=== PATIENT | female | born 1965 ===

== ENCOUNTER 2020-08-01 19:00 | Inpatient (IN) | payer MEDICARE, OTHER ==
[~2020-08-01] VITALS: Ht 165.1 cm; Wt 72.6 kg
--- NOTE | 2020-08-01 19:08 | NUR ---
PT IS IN ROOM #1B. DR SALCEDO EVALUATED THE PT.
--- NOTE | 2020-08-01 19:30 | NUR ---
Patient is resting in bed, no acute distress noted.
[2020-08-01] MEDS ORDERED: MAG30ORA PO (19:47)
[2020-08-01] MEDS ORDERED: DIPH50CA37 PO (19:47)
[2020-08-01] MEDS ORDERED: LORA2TAB95 PO (19:47)
[2020-08-01] MEDS ORDERED: HYDR50CA PO (19:47)
[2020-08-01] MEDS ORDERED: BISM262O28 PO (19:47)
[2020-08-01] MEDS ORDERED: DEXT15SY3 PO (19:47)
[2020-08-01] MEDS ORDERED: MAGN400O6 PO (19:47)
[2020-08-01] MEDS ORDERED: ACET-2154 PO (19:47)
[2020-08-01] MEDS ORDERED: IBUP-1953 PO (19:47)
[2020-08-01 20:06] LABS: HEMATOCRIT 41.5 % (31.2-41.9); MEAN CORPUSCULAR HEMOGLOBIN 30.5 uug (24.7-32.8); MEAN CORPUSCULAR VOLUME 91.6 fL (75.5-95.3); PLATELET COUNT (AUTO) 296 K/uL (179-408)
[2020-08-01 20:09] LABS: CARBON DIOXIDE 25 mmol/L (21-32); CHLORIDE 105 mmol/L (98-107); CREATININE 0.7 mg/dL (0.6-1.3); ETHANOL < 3 MG/DL (0-0); GLUCOSE 108 mg/dL (74-106); POTASSIUM 3.9 mmol/L (3.5-5.1); UREA NITROGEN, BLOOD 10 mg/dL (7-18)
--- NOTE | 2020-08-01 20:20 | NUR ---
Katarina contacted to conduct crisis evaluation. ETA 1 hour.
[2020-08-01 20:22] LABS: THYROID STIMULATING HORMONE 11.297 mIU/mL (0.358-3.740)
[2020-08-01 20:23] LABS: ALANINE AMINOTRANSFERASE 20 U/L (14-59); ALKALINE PHOSPHATASE 86 U/L (50-136); ASPARTATE AMINOTRANSFERASE 24 U/L (15-37); BILIRUBIN,DIRECT 0.1 mg/dL (0.0-0.2); BILIRUBIN,TOTAL 0.3 mg/dL (0.2-1.0); CREATINE KINASE, TOTAL 826 U/L (26-192); TOTAL PROTEIN, SERUM 7.3 g/dL (6.4-8.2)
[2020-08-01 20:24] LABS: ACETAMINOPHEN < 2.0 ug/mL (10-30)
--- NOTE | 2020-08-01 20:29 | NUR ---
1:1 sitter requested for patient d/t her intentions of wanting to harm herself earlier prior to arrival. Nursing supervisor hard candy notified, no sitters avaliable for patient at this time. Will continue to monitor patient for safety.
--- NOTE | 2020-08-01 20:53 | NUR ---
Called for room in MHU, patient will be going to 139A.
--- NOTE | 2020-08-01 20:56 | NUR ---
Katarina at bedside to conduct crisis team evaluation of patient.
[2020-08-01 21:23] LABS: *BILIRUBIN,URIN NEGATIVE (NEGATIVE); *BLOOD, URINE NEGATIVE (NEGATIVE); *KETONES,URINE NEGATIVE (NEGATIVE); *UROBILINOGEN,URINE 0.2 E.U./dl (NORMAL); LEUKOCYTE ESTERASE ,URINE TRACE (NEGATIVE); NITRITE, URINE NEGATIVE (NEGATIVE); PH,URINE 7.5 (5.0-8.0); UGLUCOSE NEGATIVE (NEGATIVE)
[2020-08-01 21:25] LABS: *CLARITY,URINE HAZY (CLEAR); *COLOR,URINE STRAW (YELLOW)
--- NOTE | 2020-08-01 21:25 | NUR ---
Tam kaur in ED - 08/01/20 at 2227 by ANUJA Pt. admitted to [address], under care of Dr. Brown/TORREY Dodge List completed
[2020-08-01 21:26] LABS: *AMPHETAMINE, URINE NEGATIVE (NEGATIVE); *CANNABINOID, URINE NEGATIVE (NEGATIVE); *COCCAINE, URINE NEGATIVE (NEGATIVE); *OPIATE, URINE NEGATIVE (NEGATIVE); *PHENCYCLIDINE SCREEN,URINE NEGATIVE (NEGATIVE)
[2020-08-01 21:30] LABS: BACTERIA,URINE NONE SEEN /HPF (NONE SEEN); RBC,URINE 0-3 /HPF (0-3); SQUAMOUS EPITHELIAL CELL,UR FEW /HPF (NONE SEEN)
--- NOTE | 2020-08-01 21:30 | NUR ---
Patient getting restless and wants to walk, patient informed to stay in her room.
--- NOTE | 2020-08-01 21:30 | NUR ---
Report given JUDY Castillo.
[2020-08-01] MEDS ORDERED: MAGNESIUM HYDROXIDE 30 ML LIQUID UDC PO PRN (22:15)
[2020-08-01] MEDS ORDERED: MAG HYDROX/AL HYDROX/SIMETH 30 ML LIQUID UDC PO PRN (22:15)
--- NOTE | 2020-08-01 22:25 | NUR ---
Pt. admitted to [facility] 139A, under care of Dr. Brown/TORREY Muñiz Belongs List completed
[2020-08-01 22:30] VITALS: BP 138/72
--- NOTE | 2020-08-01 23:17 | NUR ---
Pt received from ER at 2230 in a safe, stable condition. Alert and oriented x 4, patient denies pain and SI at this time; cooperative with admission procedure. Dr. Brown made aware of admission to MHU. Pt oriented to the unit and her environment, physical assessment done--skin intact. Pt photo taken and placed in chart. Advisement given to pt. Safety precautions in place. Assisted with shower and kept comfortable. Will continue to monitor.
[2020-08-02] MEDS: TEMAZEPAM 7.5 MG CAPSULE PO PRN ×2 (00:41→23:41)
[2020-08-02 07:54] VITALS: BP 98/57
[2020-08-02] MEDS ORDERED: risperiDONE 0.5 MG TABLET PO SCH (11:45)
[2020-08-02] MEDS ORDERED: PNEUMOCOCCAL 23-VAL P-SAC VAC 0.5 ML VIAL IM ONE (12:00)
[2020-08-02] MEDS: risperiDONE 1 MG TABLET PO SCH ×2 (12:32→20:40)
[2020-08-02] MEDS: LAMOTRIGINE 100 MG TABLET PO SCH ×2 (12:32→20:40)
[2020-08-02 16:44] VITALS: BP 100/70
[2020-08-02 19:48] VITALS: BP 129/76
[2020-08-02] MEDS: LORAZEPAM 0.5 MG TABLET PO PRN (22:21)
[2020-08-03] MEDS ORDERED: PNEUMOCOCCAL 23-VAL P-SAC VAC 0.5 ML VIAL IM ONE (07:15)
[2020-08-03 07:30] VITALS: BP 99/52
[2020-08-03] MEDS: LAMOTRIGINE 100 MG TABLET PO SCH ×2 (08:43→20:22)
[2020-08-03] MEDS: risperiDONE 1 MG TABLET PO SCH ×3 (08:43→16:22)
[2020-08-03] MEDS ORDERED: ARIPIPRAZOLE 5 MG TABLET PO SCH (13:00)
[2020-08-03] MEDS: BENZTROPINE MESYLATE 1 MG TABLET PO SCH ×2 (13:04→16:22)
[2020-08-03 15:15] VITALS: BP 132/76
[2020-08-03] MEDS: LORAZEPAM 0.5 MG TABLET PO PRN (19:27)
[2020-08-03 20:06] VITALS: BP 128/77
[2020-08-03] MEDS ORDERED: DOCU-141 PO (20:13)
[2020-08-03] MEDS ORDERED: LUBI8CAP PO (20:13)
[2020-08-03] MEDS ORDERED: DILT180C90 PO (20:13)
[2020-08-03] MEDS ORDERED: BISA-79 PO (20:13)
[2020-08-03] MEDS ORDERED: LEVO125T PO (20:13)
[2020-08-03] MEDS ORDERED: CHOL200026 (20:16)
--- NOTE | 2020-08-04 06:11 | NUR ---
Received Pt in her room lying in bed awake. Pt appeared preoccupied and hypervigilant. Pt expressed that she is anxious and experiencing racing thoughts. Ativan 0.5mg administered with minimal effect. Compliant with scheduled medications. Restoril 7.5mg administered at 2341 for insomnia, which was effective. Denies SI/HI and verbally contracts for safety.
[2020-08-04] MEDS: LEVOTHYROXINE SODIUM 25 MCG TABLET PO SCH (06:50)
[2020-08-04 07:30] VITALS: BP 154/70
[2020-08-04] MEDS: risperiDONE 1 MG TABLET PO SCH ×3 (08:06→16:54)
[2020-08-04] MEDS: LAMOTRIGINE 100 MG TABLET PO SCH ×2 (08:06→20:12)
[2020-08-04] MEDS: BENZTROPINE MESYLATE 1 MG TABLET PO SCH ×3 (08:06→16:54)
--- NOTE | 2020-08-04 11:53 | NUR ---
SW Initial Discharge Plan: Patient currently resides at a [facility] [address] [place] [address], [place] [address]. This SW contacted patient's [facility] and spoke with Sidra ([phone]) who stated that patient is welcomed back upon discharge. She reported that patient's probate conservator is her brother Thom ([phone]). This SW contacted patient's brother Thom ([phone]) to discuss treatment and discharge plan, however, this SW was unable to leave a voicemail. This SW will work with the MD, treatment team, and family to help coordinate proper discharge.
--- NOTE | 2020-08-04 11:53 | NUR ---
Board and Care: This SW contacted patient's board and care and spoke with Sidra ([phone]) who stated that patient is welcomed back upon discharge. She reported that patient's probate conservator is her brother Thom ([phone]). This SW stated that the probate conservatorship that was faxed to the hospital is . She reported that the brother renewed it but hasn't faxed it over to her yet. Sidra stated that the brother is minimally involved in her care.
--- NOTE | 2020-08-04 11:54 | NUR ---
SW Family Contact: This SW contacted patient's brother Thom ([phone]) to discuss treatment and discharge plan, however, this SW was unable to leave a voicemail.
--- NOTE | 2020-08-04 11:55 | NUR ---
Firearms Report: Docking Pilot completed and submitted a [employer] firearms report for 5150 grave disability certification. A copy of report has been placed in patient chart.
--- NOTE | 2020-08-04 12:42 | NUR ---
[facility] Public Guardian: This SW spoke with rotary drill rig operator Martin ([phone]) who stated that the pt does not have a probate conservatorship.
[2020-08-04] MEDS: ARIPIPRAZOLE 5 MG TABLET PO SCH ×2 (13:21→16:54)
[2020-08-04 15:19] VITALS: BP 94/66
[2020-08-04 15:28] LABS: HEMATOCRIT 41.3 % (31.2-41.9); MEAN CORPUSCULAR HEMOGLOBIN 30.8 uug (24.7-32.8); MEAN CORPUSCULAR VOLUME 90.9 fL (75.5-95.3); PLATELET COUNT (AUTO) 324 K/uL (179-408)
[2020-08-04 15:38] LABS: BILIRUBIN,TOTAL 0.4 mg/dL (0.2-1.0); CREATININE 0.9 mg/dL (0.6-1.3); MAGNESIUM 2.1 mg/dL (1.8-2.4); TOTAL PROTEIN, SERUM 7.6 g/dL (6.4-8.2)
[2020-08-04] MEDS: ACETAMINOPHEN 325 MG TABLET PO PRN (18:59)
[2020-08-04 20:10] VITALS: BP 101/64
[2020-08-04] MEDS: TEMAZEPAM 7.5 MG CAPSULE PO PRN (22:23)
[2020-08-04] MEDS: LORAZEPAM 0.5 MG TABLET PO PRN (23:19)
[2020-08-05] MEDS: LEVOTHYROXINE SODIUM 25 MCG TABLET PO SCH (06:03)
[2020-08-05 07:30] VITALS: BP 91/64
[2020-08-05] MEDS: BENZTROPINE MESYLATE 1 MG TABLET PO SCH ×3 (08:34→16:54)
[2020-08-05] MEDS: ARIPIPRAZOLE 5 MG TABLET PO SCH ×3 (08:34→16:54)
[2020-08-05] MEDS: LAMOTRIGINE 100 MG TABLET PO SCH ×2 (08:34→20:02)
[2020-08-05] MEDS: risperiDONE 1 MG TABLET PO SCH ×3 (08:34→16:54)
[2020-08-05] MEDS ORDERED: ARIPIPRAZOLE 5 MG TABLET PO ONE (09:15)
--- NOTE | 2020-08-05 10:37 | NUR ---
SW Family Contact: This SW contacted patient's brother Thom ([phone]) to discuss treatment and discharge plan, however, this SW was unable to leave a voicemail.
--- NOTE | 2020-08-05 10:40 | NUR ---
OTTO Individual Therapy: repack room worker met with patient for brief counseling to help address patient's presenting problem depressed mood. Patient appeared withdrawn and depressed. Patient did not want to conduct therapy at this time.
[2020-08-05] MEDS ORDERED: MAGNESIUM HYDROXIDE 30 ML LIQUID UDC PO PRN (15:15)
[2020-08-05] MEDS ORDERED: BISMUTH SUBSALICYLATE 262 MG/15 ML UDC PO PRN (15:15)
[2020-08-05 15:18] VITALS: BP 103/66
--- NOTE | 2020-08-05 15:45 | NUR ---
GPS: Nursing Notes: Abdominal Auscultation: Patient refusing for staff to examine her abdomen at this time, stated "No..Get away.. I am fine.. I have no pain... I did it yesterday...", patient is paranoid, and anxious affect, pacing in the hallway, Dr. Bello informed by charge nurse, continue to monitor for safety, continue with treatment plan.
[2020-08-05] MEDS: BISACODYL 5 MG TABLET.DR PO SCH (16:54)
[2020-08-05] MEDS: ACETAMINOPHEN 325 MG TABLET PO PRN (16:54)
[2020-08-05] MEDS: DOCUSATE SODIUM 100 MG CAPSULE PO SCH (20:02)
[2020-08-05 20:05] VITALS: BP 104/65
[2020-08-05] MEDS: LORAZEPAM 0.5 MG TABLET PO PRN (21:20)
[2020-08-06] MEDS: LEVOTHYROXINE SODIUM 125 MCG TABLET PO SCH (06:12)
[2020-08-06 07:30] VITALS: BP 102/60
--- NOTE | 2020-08-06 08:00 | NUR ---
RECEIVED PATIENT IN BED AWAKE ALERT SEEMS DEPRESSED VERY QUIET BUT COOPERATIVE DUE MEDICATIONS GIVEN AND TOLERATED WELL ENCOURAGED TO GO TO THE D/ROOM AND PARTICIPATE IN ACTIVITIES VERY SHORT ATTENTION SPAN DID NOT ENGAGE IN CONVERSATION AT THIS TIME.
[2020-08-06] MEDS: CHOLECALCIFEROL 1,000 UNIT TABLET PO SCH (08:50)
[2020-08-06] MEDS: BENZTROPINE MESYLATE 1 MG TABLET PO SCH ×3 (08:51→16:30)
[2020-08-06] MEDS: LAMOTRIGINE 100 MG TABLET PO SCH ×2 (08:51→20:07)
[2020-08-06] MEDS: risperiDONE 1 MG TABLET PO SCH ×3 (08:52→16:31)
[2020-08-06] MEDS: BISACODYL 5 MG TABLET.DR PO SCH ×2 (08:52→16:30)
[2020-08-06] MEDS: ARIPIPRAZOLE 10 MG TABLET PO SCH ×3 (08:59→16:31)
[2020-08-06] MEDS ORDERED: ARIPIPRAZOLE 5 MG TABLET PO SCH (09:00)
--- NOTE | 2020-08-06 10:52 | NUR ---
Court Hearing: Patient's court hearing for 9870 was today and it was upheld for GD.
[2020-08-06 16:00] VITALS: BP 114/69
--- NOTE | 2020-08-06 17:51 | NUR ---
ASSISTED WITH SHOWERING TODAY HAD A FEW REQUESTS FOR JUICE AND AT TIMES SNACK BUT OTHER THAN THAT RARELY SOCIALISED OR PARTICIPATED IN ACTIVITIES WILL CONTINUE TO OBSERVE ENCOURAGE IN ACTIVITY PARTICIPATION AND VERBALISING NEEDS.
[2020-08-06] MEDS: DOCUSATE SODIUM 100 MG CAPSULE PO SCH (20:07)
[2020-08-06 20:18] VITALS: BP 110/68
[2020-08-06] MEDS: TEMAZEPAM 7.5 MG CAPSULE PO PRN (22:58)
[2020-08-06] MEDS: ACETAMINOPHEN 325 MG TABLET PO PRN (23:55)
[2020-08-06] MEDS: LORAZEPAM 0.5 MG TABLET PO PRN (23:55)
[2020-08-07] MEDS: LEVOTHYROXINE SODIUM 125 MCG TABLET PO SCH (06:02)
[2020-08-07 07:30] VITALS: BP 91/63
[2020-08-07] MEDS: BISACODYL 5 MG TABLET.DR PO SCH ×2 (08:46→17:21)
[2020-08-07] MEDS: CHOLECALCIFEROL 1,000 UNIT TABLET PO SCH (08:47)
[2020-08-07] MEDS: risperiDONE 1 MG TABLET PO SCH ×3 (08:47→17:20)
[2020-08-07] MEDS: ARIPIPRAZOLE 10 MG TABLET PO SCH ×3 (08:47→17:21)
[2020-08-07] MEDS: LAMOTRIGINE 100 MG TABLET PO SCH ×2 (08:47→20:39)
[2020-08-07] MEDS: BENZTROPINE MESYLATE 1 MG TABLET PO SCH ×3 (08:47→17:21)
--- NOTE | 2020-08-07 10:13 | NUR ---
SW Individual Therapy: recreation worker met with patient for brief counseling to help address patient's presenting problem depressed mood. Patient appeared withdrawn and depressed. Patient appeared paranoid and stating that "people are after her and no one likes me". Pt shared with this SW when she was a child she was bullied. SW actively listened and provided emotional support for pt.
--- NOTE | 2020-08-07 14:33 | NUR ---
Board and Care: This SW contacted patient's board and care and spoke with Sidra ([phone]) to coordinate discharge for pt on 08/11/20. Sidra requested this SW to send patient's clinicals and this SW faxed it to ([phone]). Sidra stated that she will provide Lyft transportation for pt on Addendum: 08/07/20 at 1436 by OTTO DOSS Sidra stated that she will provide Lyft transportation for pt on 08/11 at 1PM.
[2020-08-07 16:00] VITALS: BP 117/79
--- NOTE | 2020-08-07 16:00 | NUR ---
Gps/Manager Philosophy- Attended group therapy, quiet, guarded, not interactive, does not carry on conversations, responds to simple questions. Compliant with her routine medications.
[2020-08-07 20:12] VITALS: BP 102/60
[2020-08-07] MEDS: DOCUSATE SODIUM 100 MG CAPSULE PO SCH (20:39)
[2020-08-07] MEDS: ATORVASTATIN 10 MG TABLET PO SCH (20:39)
[2020-08-07] MEDS: ACETAMINOPHEN 325 MG TABLET PO PRN (21:31)
[2020-08-07] MEDS: TEMAZEPAM 7.5 MG CAPSULE PO PRN (21:31)
--- NOTE | 2020-08-08 05:51 | NUR ---
GPS: REMAIN CALM AND COOPERATIVE.SELF CARE. COMPLIANT WITH MEDS. NO AGITATION NOTEDE. DENIES SI AT THIS TIME. SLEPT 5.15 HRS THROUGH THE NIGHT. CONTINUE PLAN OF CARE.
[2020-08-08] MEDS: LEVOTHYROXINE SODIUM 125 MCG TABLET PO SCH (06:11)
[2020-08-08 07:30] VITALS: BP 118/72
[2020-08-08] MEDS: LAMOTRIGINE 100 MG TABLET PO SCH ×2 (08:19→20:42)
[2020-08-08] MEDS: CHOLECALCIFEROL 1,000 UNIT TABLET PO SCH (08:19)
[2020-08-08] MEDS: BENZTROPINE MESYLATE 1 MG TABLET PO SCH ×3 (08:19→16:16)
[2020-08-08] MEDS: BISACODYL 5 MG TABLET.DR PO SCH ×2 (08:20→16:16)
[2020-08-08] MEDS: ARIPIPRAZOLE 10 MG TABLET PO SCH ×3 (08:20→16:16)
[2020-08-08] MEDS: risperiDONE 1 MG TABLET PO SCH ×3 (08:20→16:15)
[2020-08-08 16:26] VITALS: BP 121/68
[2020-08-08 20:19] VITALS: BP 111/66
[2020-08-08] MEDS: ATORVASTATIN 10 MG TABLET PO SCH (20:42)
[2020-08-08] MEDS: DOCUSATE SODIUM 100 MG CAPSULE PO SCH (20:42)
--- NOTE | 2020-08-09 01:15 | NUR ---
RECEIVED PATIENT IN BED AWAKE. NOTED QUITE,GUARDED WITH OCCASIONAL PACING UP AND DOWN THE HALLWAY AND GESTURING WITH HER HANDS. WHEN ASKED IF SHE HEARS VOICES OR HAS VISUAL HALLUCINATIONS SHE DENIED THEM. SHE IS HOWEVER COMPLIANT WITH HER MEDS AND CARE. SAFETY PROTOCOLS IN PLACE. WILL CONTINUE TO MONITOR.
[2020-08-09] MEDS: LORAZEPAM 0.5 MG TABLET PO PRN (02:45)
[2020-08-09] MEDS: LEVOTHYROXINE SODIUM 125 MCG TABLET PO SCH (06:27)
--- NOTE | 2020-08-09 06:53 | NUR ---
SLEPT FOR 5:00HOURS. GIVEN ATIVAN AT 02:45HOURS.
[2020-08-09 08:04] VITALS: BP 111/65
[2020-08-09] MEDS: ARIPIPRAZOLE 10 MG TABLET PO SCH ×3 (08:17→17:19)
[2020-08-09] MEDS: BISACODYL 5 MG TABLET.DR PO SCH ×2 (08:17→17:20)
[2020-08-09] MEDS: risperiDONE 1 MG TABLET PO SCH ×3 (08:17→17:19)
[2020-08-09] MEDS: CHOLECALCIFEROL 1,000 UNIT TABLET PO SCH (08:17)
[2020-08-09] MEDS: LAMOTRIGINE 100 MG TABLET PO SCH ×2 (08:17→21:09)
[2020-08-09] MEDS: BENZTROPINE MESYLATE 1 MG TABLET PO SCH ×3 (08:29→17:20)
[2020-08-09 16:43] VITALS: BP 120/56
[2020-08-09 19:51] VITALS: BP 99/53
--- NOTE | 2020-08-09 21:00 | NUR ---
Received patient in the hallway. She is noted A/O x 3 able to verbalized feelings. appears depressed. mood is low, affect is blunted. Patient denies SI/HI/VH/AH she is able to verbally CFS. denial is convincing. patient is also reassured for her safety. patient also comply or itchiness in her back. Upon assessment, it was noted red hives on back and abdomen. pt is afebrile V/S stable at this time. patient was advised to stop scratching her back, lotion was applied to her back and abdomen with moderate relieve, Dr Dykes was notified and new order obtained to administer Benadryl 25mg PO PRN for Itchiness. Safety and fall precaution in place. will continue to monitor.
[2020-08-09] MEDS: DOCUSATE SODIUM 100 MG CAPSULE PO SCH (21:09)
[2020-08-09] MEDS: ATORVASTATIN 10 MG TABLET PO SCH (21:09)
[2020-08-10] MEDS: diphenhydrAMINE 25 MG CAP PO PRN ×2 (00:17→12:40)
[2020-08-10] MEDS: TEMAZEPAM 7.5 MG CAPSULE PO PRN ×2 (01:17→22:30)
[2020-08-10] MEDS: LEVOTHYROXINE SODIUM 125 MCG TABLET PO SCH (06:11)
[2020-08-10 07:30] VITALS: BP 107/60
[2020-08-10] MEDS: LAMOTRIGINE 100 MG TABLET PO SCH ×2 (08:38→20:39)
[2020-08-10] MEDS: BENZTROPINE MESYLATE 1 MG TABLET PO SCH ×3 (08:38→17:15)
[2020-08-10] MEDS: CHOLECALCIFEROL 1,000 UNIT TABLET PO SCH (08:38)
[2020-08-10] MEDS: BISACODYL 5 MG TABLET.DR PO SCH ×2 (08:38→17:15)
[2020-08-10] MEDS: risperiDONE 1 MG TABLET PO SCH ×3 (08:38→17:15)
[2020-08-10] MEDS: ARIPIPRAZOLE 10 MG TABLET PO SCH ×3 (08:39→17:15)
[2020-08-10 16:05] VITALS: BP 102/53
[2020-08-10 20:00] VITALS: BP 106/60
[2020-08-10] MEDS: ATORVASTATIN 10 MG TABLET PO SCH (20:39)
[2020-08-10] MEDS: DOCUSATE SODIUM 100 MG CAPSULE PO SCH (20:39)
[2020-08-11] MEDS: diphenhydrAMINE 25 MG CAP PO PRN (00:50)
[2020-08-11] MEDS: LEVOTHYROXINE SODIUM 125 MCG TABLET PO SCH (06:16)
[2020-08-11 07:30] VITALS: BP 104/57
--- NOTE | 2020-08-11 08:02 | NUR ---
Discharge Note: Patient currently resides at a [facility] [address] [facility], [place] [address]. Patients Board and Care Admin Sidra ([phone]) set up Lyft transportation at 1PM. This SW contacted patient's board and care and spoke with Sidra ([phone]) who stated that patient is welcomed back upon discharge. This SW left a voicemail to patients brother Thom Probate conservator ([phone]) of patients discharge. Patient is alert and oriented x3 and is unable to plan for self-care. Patient denies any suicidal or homicidal ideations. Patient is aware and agreeable with discharge plans. Patient will continue to follow-up with (Psychiatrist) Dr. Phipps and (Senior Reservoir Engineer) Dr. Jasmine at her Board and [facility]. Patient presents with euthymic mood and congruent affect.
[2020-08-11] MEDS: CHOLECALCIFEROL 1,000 UNIT TABLET PO SCH (08:17)
[2020-08-11] MEDS: BISACODYL 5 MG TABLET.DR PO SCH (08:17)
[2020-08-11] MEDS: LAMOTRIGINE 100 MG TABLET PO SCH (08:17)
[2020-08-11] MEDS: risperiDONE 1 MG TABLET PO SCH ×2 (08:17→12:40)
[2020-08-11] MEDS: ARIPIPRAZOLE 10 MG TABLET PO SCH ×2 (08:17→12:40)
[2020-08-11] MEDS: BENZTROPINE MESYLATE 1 MG TABLET PO SCH ×2 (08:18→12:40)
--- NOTE | 2020-08-11 11:46 | NUR ---
Patient will be discharged back to [facility] . Patients Board and Care Admin Sidra will strip picker by Lyft transportation at 1PM. patients brother Thom Probate conservator aware of patients discharge. Patient is alert and oriented x3 and is unable to plan for self-care. all personal belonging returned to patient and signed.discharge instruction given to patient.
--- NOTE | 2020-08-11 13:16 | NUR ---
patient picked up by Lakisha, vital sign stable.
== END 2020-08-11 13:19 | DRG 885 ==
LOC: ER 19:00 → GPS 22:03
PROVIDERS: ADMIT Psychiatry & Neurology Psychosomatic Medicine; ATTEND Internal Medicine
DX: F25.0 Schizoaffective disorder, bipolar type (principal); E78.5 Hyperlipidemia, unspecified; E03.9 Hypothyroidism, unspecified; Z20.822 Contact with and (suspected) exposure to COVID-19; E66.9 Obesity, unspecified; Z68.26 Body mass index [BMI] 26.0-26.9, adult; R90.89 Other abnormal findings on diagnostic imaging of central nervous system; E55.9 Vitamin D deficiency, unspecified
CPT/HCPCS: 36415; 70450; 71045; 83735; 84146; 84443; 84481; 85025; 90732; A4663; G0480; Q0163